=== PATIENT | female | born 1990 | race Caucasian/White ===

== ENCOUNTER 2023-03-24 02:52 | Emergency (ER) | payer BC ==
[~2023-03-24] VITALS: Ht 154.9 cm; Wt 62.4 kg
[2023-03-24 02:57] VITALS: BP 132/80
--- NOTE | 2023-03-24 03:01 | NUR ---
PT STATES THINKS ABX SHE WAS TAKING WAS AMOXICILLIN. Addendum: 03/24/23 at 0303 by MARITZA PT LOOKED UP RX AND WAS TAKING AUGMENTIN.
[2023-03-24] MEDS ORDERED: amox tr/potassium clavulanate 875/125mg TAB PO ONE (03:10)
[2023-03-24] MEDS ORDERED: AMOX-117 PO (03:28)
== END 2023-03-24 03:51 | disposition home or self-care (01) ==
LOC: ER 02:53
DX: J02.0 Streptococcal pharyngitis (principal); Z79.2 Long term (current) use of antibiotics
CPT/HCPCS: 99283